=== PATIENT | male | born 1960 | race Caucasian/White ===

== ENCOUNTER → 2019-05-29 10:17 | Outpatient (CLI) | payer SELFPAY ==
[2019-05-29 10:29] VITALS: BP 162/85; PULSE 69; RESP 14; TEMP 36.6; O2SAT 98; BMI 28.8
--- NOTE | 2019-05-29 10:50 | HTC.HP3 ---
Problem List (1) Hemophilia Status: Chronic Subjective Date of Service:: 05/29/19 Chief Complaint: F/u for Hemophilia B. 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 Still gets epistaxis on and off. Treated for Hep C in 2003. Use a factor replacement for a nose bleed. Power of Professor Of [employer]: No Living Will: No Health History: Past Medical History Past Medical History: Bleeding disorder Past Surgical History Surgical: Rotator cuff repair Family History Paternal Past Medical History: Unknown Maternal Past Medical History: Diabetes mellitus,Stroke Past Medical History (Last Reviewed 05/29/19 @ 10:28 by Sue Cam) Hemophilia (Acute) Past Surgical History (Last Reviewed 06/06/18 @ 11:54 by Cecilia Webb) History of repair of rotator cuff (Acute) Family History (Last Reviewed 05/29/19 @ 10:28 by Sue Cam) Mother CVA (cerebral vascular accident) Diabetes Social History Smoking Status Never smoker Allergies/Adverse Reactions: Allergy/AdvReac Type Severity Reaction Status Date / Time aspirin [ASA] AdvReac Severe BLEEDING Verified 05/29/19 10:28 Risk Factors Social History Smoking Status Never smoker Tobacco Risk Data: Tobacco Risk Smoking Status Never smoker Type of tobacco: Smokeless tobacco usage: Items/Day: Year started: Years used: Counseled to quit/cut down: Reason for no counseling performed: Reason for no pharmacotherapy: Tobacco use comments: Passive smoke exposure: Substance Risk Drug use: No Caffeine use [drinks/day]: 2 Alcohol use: No Type of alcohol: Drinks per day: Has patient felt the need to cut down: Has the patient been annoyed by complaints: Has the patient felt guilty about drinking: Has the patient needed an eye marketing writer in the mornings: Comments: Review of Systems Constitutional:: Denies: Fever, Sweats, Weight loss, Appetite change, Chills Cardiovascular:: Denies: Chest pain, Palpitations, Dyspnea on exertion, Orthopnea, PND, Shortness of breath Respiratory: Denies: Cough, Hemoptysis, Shortness of Breath, Wheezing Gastrointestinal:: Denies: Abdominal pain, Nausea, Vomiting, Diarrhea, Constipation, Hematochezia Genitourinary: Denies: Dysuria, Hematuria, 15, Flank pain Musculoskeletal:: Denies: Back pain, Myalgia, Arthralgia Skin: Denies: Rash, Skin Changes, Wounds Neurological:: Denies: Headache, Dizziness, Visual changes, Tinnitus, Hearing loss Psychiatric: Denies: Anxiety, Depression, Homicidal Ideations, Suicidal Ideations Vital Signs Height 5 ft 10.5 in Weight: 92.533 kg Weight in Pounds 204.0 lbs Pulse Ox 98 Temperature 98 F Pulse Rate 69 Respiratory Rate 14 Blood Pressure 162/85 Blood Pressure Position Sitting - Physical Exam General: Alert, Oriented x3, No apparent distress HEENT: Atraumatic, PERRLA, EOMI, Normocephalic Oropharynx:: Dry mucosa Neck:: Supple, Trachea midline. Negative for: JVD, bilateral Cardiac:: Regular rate, Regular rhythm, Normal S1, Normal S2. Negative for: Murmur Lungs: Clear to auscultation, Excusion symmetrical. Negative for: Rhonchi, Wheezes Abdomen:: Bowel sounds x 4, Soft, Non-tender, Non-distended. Negative for: Hepatosplenomegaly Extremities:: Negative for: Cyanosis, Edema Neurological: Neuro grossly intact Skin:: Negative for: Lesions, Rash, Petechiae, Ecchymosis Psychiatric:: Appropriate affect, Euthymic Lymphatics:: Negative for: Cervical lymphadenopathy, Supraclavicular lymphadenopathy, Axillary lymphadenopathy Assessment and Plan Hemophilia B, clinically stable. Epistaxis on and off. H/O hep C. Plan is to continue expectant management with Factor replacement as needed. To use Lysteda when he gets nose bleeds. RTC 1 yr. Medications: Prescriptions This Visit Medication Instructions Recorded Omeprazole 40 mg PO DAILY 05/29/19 Primary Care Provider: Pierre Dunn DO Referring Provider: Wellington Phillip MD
== END ==
PROVIDERS: Family Provider Student in an Organized Health Care Education/Training Program; PCP Student in an Organized Health Care Education/Training Program; Referring Provider Internal Medicine Hematology & Oncology; Visit Provider Internal Medicine Medical Oncology
DX: D67 Hereditary factor IX deficiency (principal)